=== PATIENT | male | born 1995 | race Caucasian/White ===

== ENCOUNTER 2019-12-14 23:32 | Emergency (ER) | payer OTHER, SELFPAY ==
[2019-12-14 23:39] VITALS: BP 136/90; PULSE 78; RESP 18; TEMP 36.7; O2SAT 99; BMI 23.3
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
== END 2019-12-15 00:51 | disposition home or self-care (01) ==
PROVIDERS: Emergency Provider Emergency Medicine
DX: Z48.02 Encounter for removal of sutures (principal)
CPT/HCPCS: 99283; 99284

== ENCOUNTER 2021-02-16 12:41 | Outpatient (REF) | payer OTHER, SELFPAY ==
[2021-02-16 13:18] LABS: Hematocrit 46.5 % (42.0-52.0); Hemoglobin 15.3 g/dl (14.0-18.0); Mean Corpuscular HGB Conc 32.9 g/dl (31.0-36.0); Mean Corpuscular Volume 85.2 fL (80.0-98.0); Platelet Count 340 X10*3/uL (160-400); Red Blood Count 5.46 X10*6/uL (4.60-5.80); Red Cell Distribution Width 13.1 % (11.0-16.0); White Blood Count 5.8 X10*3/uL (4.8-10.8)
[2021-02-16 13:38] LABS: Anion Gap 10 (12-20); Blood Urea Nitrogen 19 mg/dL (9-16); Calcium 9.9 mg/dL (8.4-10.2); Carbon Dioxide 26 mmol/L (22-29); Chloride 108 mmol/L (96-108); Cholesterol 231 mg/dL; Estimated Glomerular Filt Rate > 60; Glucose Fasting 102 mg/dL (60-99); HDL Cholesterol 51 mg/dL; LDL Cholesterol Calculated 163 mg/dl; Potassium 4.3 mmol/L (3.3-5.1); Sodium 140 mmol/L (135-145); Triglycerides 86 mg/dL
[2021-02-17 08:25] LABS: HIV AB/AG Nonreactive (Nonreactive); HIV Num 1 0.07 S/CO (0.00-0.99)
[2021-02-17 08:32] LABS: Syphilis Screen Nonreactive (Nonreactive)
[2021-02-17 08:38] LABS: ~Hepatitis C Antibody Nonreactive (Nonreactive)
== END 2021-02-16 12:42 | disposition home or self-care (01) ==
LOC: HO.LAB 12:41
PROVIDERS: PCP Nurse Practitioner Family; Visit Provider Nurse Practitioner Family
DX: Z11.4 Encounter for screening for human immunodeficiency virus [HIV] (principal); Z11.3 Encounter for screening for infections with a predominantly sexual mode of transmission; E78.00 Pure hypercholesterolemia, unspecified; Z76.89 Persons encountering health services in other specified circumstances
CPT/HCPCS: 36415; 80048; 80061; 85027; 86780; 86803; 87389

== ENCOUNTER 2021-03-31 18:51 | Emergency (ER) | payer OTHER, SELFPAY ==
[2021-03-31 19:21] VITALS: BP 113/51; PULSE 80; RESP 24; O2SAT 98; BMI 28.2
--- NOTE | 2021-03-31 21:16 | ED.EYEPROB ---
HPI - Eye Problem General Chief complaint: Eye Problems Stated complaint: pvc plastic in eye Time Seen by Provider: 03/31/21 21:16 Source: patient Mode of arrival: ambulatory Limitations: no limitations History of Present Illness HPI Narrative: 25-year-old male no significant medical history presents to the emergency department with complaints of foreign body sensation in the left eye causing pain, and irritation. Patient tells me that he was cutting a piece of PVC plastic, not wearing goggles, he feels like a piece got into his eye. He tells me he tried [id number] drops, but he still feels like there is something in his eye. He tells me is vision is slightly blurred however he still sees well. He does not wear contact lenses. No fevers, chills, double vision, headache, dizziness. MD chief complaint: eye pain, eye redness, vision change (Slightly blurred vision.) and foreign body (Foreign body sensation to left eye.) Onset (ago): day(s) (1) Onset description: sudden Duration: constant Location: left eye Eye Symptoms: burning, redness, pain, foreign body sensation and blurry vision Place: home Mechanism: direct trauma Severity: moderate Associated symptoms: none Treatments Prior to Arrival: OTC eye drops Related Data Previous Rx's Medication Instructions Recorded erythromycin 5 mg/gram (0.5 %) eye 1 appl OPHTHALMIC-LEFT BID #3.5 g 03/31/21 ointment Allergies Allergy/AdvReac Type Severity Reaction Status Date / Time No Known Allergies Allergy Verified 02/16/21 12:09 Review of Systems Review of Systems: Constitutional : No Weight loss, No Fever, No Chills, No Fatigue, No Malaise ENT/Mouth : No sore throat, No Rhinorrhea Eyes: + Eye Pain, No Swelling, + Redness Cardiovascular : No Chest Pain, No SOB, No Dyspnea on Exertion, No Orthopnea, No Edema, No Palpitations Respiratory : No Cough, No Sputum, No Wheezing Gastrointestinal : No Nausea, No Vomiting, No Diarrhea, No Constipation, No abdominal Pain, No Hematochezia, No Melena Genitourinary : No Dysuria, No Urinary Frequency, No Hematuria, Musculoskeletal : No joint pain, No Myalgias, No Joint Swelling Skin : No Skin Lesions, No rash Neuro : No Weakness, No Numbness, No Dizziness, No Headache Psych : No Anxiety/Panic, No Depression All other systems reviewed and are negative Yes all other systems are reviewed and are negative [facility] Past Medical History Attestation statement: The following information was validated with the patient. Source: old records reviewed and nursing notes reviewed Medical History History of epilepsy Surgical History No pertinent past surgical history Family History Family History Mother Diabetes mellitus Social History Social History Housing: House Alcohol intake: current Alcohol intake frequency: a few times a month Patient Tobacco Use Status: Never used Tobacco e-Cigarette/Vaping Use: Never Used Second Hand Smoke Exposure: No Substance Use Type: Marijuana Advance Directives: No Advance Directives Information Provided: No service: No Current occupational status: employed Current occupation: Construction Cognitive needs: No Hearing needs: No Vision needs: No Physical Exam Vital Signs: Vital Signs: Last Vital Signs Pulse 80 03/31/21 19:21 Resp 24 H 03/31/21 19:21 BP 113/51 L 03/31/21 19:21 Pulse Ox 98 03/31/21 19:21 BMI result Body Mass Index 28.2 VSS Appearance: Alert.? Oriented X3.? No acute distress.? Head: Normocephalic, atraumatic, no step-offs or deformities Eyes: Pupils equal, round and reactive to light.?+ injected conjunctiva to left eye. Normal right eye. No evidence of foreign body b/l. ENT: Pharynx normal.? Neck: Normal inspection.? Neck supple.? CVS: Normal heart rate and rhythm.? Pulses normal.? Respiratory: No respiratory distress.? Breath sounds normal.? Abdomen: Soft and nontender.? Skin: Skin warm and dry.? Normal skin color.? Normal skin turgor.? Extremities: No lower extremity edema.? No calf ttp. 5/5 strength to bilateral upper and lower extremities Back: No midline tenderness, no C-spine tenderness, full range of motion, no CVA tenderness bilaterally Neuro: Oriented X 3.? No motor deficit.? No sensory deficit. Course Reevaluation(s) Reevaluation #1: Discussed discharge with patient, he understands, and agrees. He tells me will follow-up with Ophthalmology. I feel comfortable with discharge home with PCP an ophthalmology follow-up. Time: 22:49 MDM - Eye Problem MDM Narrative Medical decision making narrative: 2245 25 yo m presents w/ fb sensation to left eye, swelling an pain since this afternoon cut PVC plastic w/o glasses and felt like some got in his eye Physical examination significant for a injected the left conjunctiva. Visual acuity on the right 20/13 on the left 20/15, bilateral 20/50 pain. Fluorescein staining was done and showed no uptake, no signs of corneal abrasion, or ulcers. The Peyman-Pen was used to measure eye pressures I pressure on the right was 12 on the left 18. No evidence of foreign body, no evidence of acute angle closure glaucoma no evidence of wet macular degeneration. When I was irrigated patient tells me that it felt much better and he feels like he no longer has a foreign body in his eye. Plan at this time is to give erythromycin drops. Patient will be discharged home with ophthalmology follow-up. Medical Records Attestation: I reviewed the patient's medical records. Lab Data Attestation: I reviewed the patient's lab results. Critical Care Time Critical Care Time Critical Care Time: No Discharge Plan Discharge Clinical Impression: Conjunctival injection Patient Disposition: Home, Self-Care Additional Instructions: Take your medications as prescribed. If you were prescribed antibiotics today, it is important that you take your medication to their entirety, do not skip any doses, do not finish them early. Follow-up with your primary care provider this week. Follow-up with an eye doctor. Information below. You can use saline drops [id number] for discomfort. Return to the emergency department with new or worsening symptoms. In case of emergency call 911 Prescriptions: New erythromycin 5 mg/gram (0.5 %) ointment 1 appl ophthalmic-Left BID Qty: 3.5 0RF Referrals: Jayy Agee [Physician] - 2 days Physician,Shweta J [Primary Care Provider] - 2 days Stand Alone Forms: Work/School Release
[2021-03-31] MEDS: Tetracaine HCl/PF 0.5% Oph Sol 4 ML DROPS 3 DROP EYE-LEFT (21:49)
[2021-03-31] MEDS: Fluorescein Sodium STRIP 1 STRIP EYE-LEFT (21:49)
[2021-03-31] MEDS: Erythromycin Base 0.5% Oph Oin 1 GM TUBE 1 CM EYE-LEFT (22:53)
== END 2021-03-31 23:02 | disposition home or self-care (01) ==
PROVIDERS: Emergency Provider Emergency Medicine
DX: H11.432 Conjunctival hyperemia, left eye (principal); H57.12 Ocular pain, left eye
CPT/HCPCS: 99283; 99284